=== PATIENT | female | born 1955 | race Caucasian/White ===

== ENCOUNTER 2019-02-09 23:01 | Emergency (ER) | payer OTHER ==
[2019-02-09] MEDS: HYDROCODONE/APAP (5/325) TAB PO (23:30)
[2019-02-09] MEDS: ONDANSETRON (ODT) 4 MG TAB ODT (23:30)
== END 2019-02-10 05:21 | disposition home or self-care (01) ==
LOC: E/R 23:01
DX: S16.1XXA Strain of muscle, fascia and tendon at neck level, initial encounter (principal); S39.012A Strain of muscle, fascia and tendon of lower back, initial encounter; S80.01XA Contusion of right knee, initial encounter; V49.40XA Driver injured in collision with unspecified motor vehicles in traffic accident, initial encounter
CPT/HCPCS: 70450; 72125; 72131; 73562; 99284-25